=== PATIENT | female | born 1940 | race Caucasian/White ===

== ENCOUNTER → 2019-04-04 10:25 | Outpatient (REF) | payer MEDICARE, SELFPAY | LOC: ANHLAB 10:25 | PROVIDERS: Visit Provider Nurse Practitioner | DX: C44.329 Squamous cell carcinoma of skin of other parts of face (principal) | CPT/HCPCS: 88305; 88331 ==

== ENCOUNTER 2021-12-24 07:00 | Outpatient (NON) | payer MEDICARE, SELFPAY | END 2021-12-24 07:01 | disposition home or self-care (01) | PROVIDERS: PCP Physician Assistant Medical; Visit Provider Nurse Practitioner | DX: C44.229 Squamous cell carcinoma of skin of left ear and external auricular canal (principal) | CPT/HCPCS: 88305; 88342 ==

== ENCOUNTER 2022-01-13 14:20 | Outpatient (NON) | payer MEDICARE, SELFPAY | END 2022-01-13 14:21 | disposition home or self-care (01) | LOC: ANHLAB 14:21 | PROVIDERS: PCP Physician Assistant Medical; Visit Provider Nurse Practitioner | DX: C44.219 Basal cell carcinoma of skin of left ear and external auricular canal (principal) | CPT/HCPCS: 88305; 88331 ==

== ENCOUNTER 2023-02-03 07:00 | Outpatient (NON) | payer MEDICARE, SELFPAY | END 2023-02-04 11:39 | disposition home or self-care (01) | PROVIDERS: PCP Physician Assistant Medical; Visit Provider Nurse Practitioner | DX: D48.5 Neoplasm of uncertain behavior of skin (principal) | CPT/HCPCS: 88305 ==

== ENCOUNTER 2024-07-26 09:19 | Outpatient (CLI) | payer MEDICARE, SELFPAY ==
--- NOTE | ~2024-07-26 | MR_ITS ---
MRI of the left shoulder Technique: Axial proton-density fat-sat images, coronal proton density fat-sat and T2 fat-sat images, and sagittal T1-weighted and T2 fat-sat images were acquired. Clinical History: Pain Findings: There is advanced AC joint degenerative change, with probable prior subacromial decompressi on and/or resection of the acromion. There are complete, full-thickness tears of the supraspinatus and infraspinatus tendons, which are re tracted to the level of glenoid. Fluid-filled gap measures approximately 5.0 x 4.8 cm in extent. Ther e is moderate tendinosis of the subscapularis tendon, with suspected partial thickness tearing and mi ld diffuse thinning. There is complete rupture of the proximal long head biceps tendon, retracted to the bicipital groove. There is circumferential degenerative labral tearing. There is severe glenohumeral joint degenerative change with remodeling of the humeral head and glenoi d. There is subchondral reactive marrow edema in the glenoid. There is diffuse high-grade chondromala randee with high riding humeral head. Inferior glenohumeral ligament is intact. There is extremely large glenohumeral joint effusion, with fluid passing through the large rotator cuff defect into the subacromial/subdeltoid bursa. There is e xtensive debris or synovitis in the subacromial/subdeltoid bursa. There is severe fatty atrophy of th e supraspinatus and infraspinatus muscle bellies. There is also probable pronounced fatty atrophy of the subscapularis muscle belly. Impression: Masses, full-thickness complete rotator cuff tear involving the supraspinatus and infraspinatus tendo ns, as detailed above. Complete rupture of the proximal tendon of long head of the biceps. Extensive thinning of the subscapularis tendon without definite complete rupture. Marked fatty atrophy of the supraspinatus, infraspinatus, and subscapularis muscle bellies. High riding humeral head with severe glenohumeral joint degenerative change, as detailed above. Circumferential degenerative labral tearing. Large glenohumeral joint effusion with extensive debris or synovitis at the glenohumeral joint and in the subacromial/subdeltoid bursa. AC joint degenerative change of probable prior subacromial decompression or resection.. Reviewed, dictated and finalized at location M. Impression: Masses, full-thickness complete rotator cuff tear involving the supraspinatus a nd infraspinatus tendons, as detailed above. Complete rupture of the proximal tendon of long head of the biceps. Extensive thinning of the subscapularis tendon without definite complete ruptur e. Marked fatty atrophy of the supraspinatus, infraspinatus, and subscapularis mus will bellies. High riding humeral head with severe glenohumeral joint degenerative change, as detailed above. Circumferential degenerative labral tearing. Large glenohumeral joint effusion with extensive debris or synovitis at the gle nohumeral joint and in the subacromial/subdeltoid bursa. AC joint degenerative change of probable prior subacromial decompression or res ection..
--- OUTSIDE RECORDS SUMMARY | 2024-07-26 09:51 | XMS_ITS | Clinical Summary ---
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 Name Role Phone Temo Vasquez MD Primary Care Provider Allergies Active Allergy Reactions Criticality Noted Date Comments Etodolac Other (See comments) High 08/11/2018 GI Bleed per patient history form Iodine Strong (Lugols) Other (See comments) High 08/11/2018 GI Bleed Medications amLODIPine (NORVASC) 5 mg tablet TK 1 T PO QD 0 9 Active atorvastatin (LIPITOR) 10 mg tablet TK 1 T PO QD 0 9 Active benazepril-hydr ochlorothiazide (LOTENSIN HCT) 20-25 mg per tablet TK 1 T PO QD IN THE MORNING 0 9 Active fenofibrate micronized (LOFIBRA) 200 mg capsule TK 1 C PO QD 1 9 Active fluticasone propionate (FLONASE) 50 mcg/actuation nasal spray SHAKE LQ AND U 2 SPRAYS IEN QD 6 9 Active folic acid (FOLVITE) 1 mg tablet TK 1 T PO QD 0 9 Active metoprolol (LOPRESSOR) 50 mg tablet TK 1 T PO BID 1 9 Active albuterol HFA (PROVENTIL HFA,VENTOLIN HFA,PROAIR HFA) 90 mcg/actuation inhaler Inhale Active ascorbic acid (ascorbic acid) 500 mg tablet,chewable Take 1 tablet/chew tab (500 mg total) by mouth daily Active aspirin 81 mg enteric coated tablet Take 1 tablet (81 mg total) by mouth daily Active OneTouch Ultra Blue Test Strip strip TEST BLOOD SUGAR ONCE DAILY 1 Active cholecalciferol (VITAMIN D-3) 2000 unit tablet Take by mouth Active ferrous sulfate 325 mg (65 mg of elemental iron) tablet Take by mouth 2 (two) times a day 7 Active gabapentin (NEURONTIN) 300 mg capsule Take by mouth 2 (two) times a day 7 Active OneTouch Delica Plus Lancet 33 gauge misc USE TO TEST BLOOD SUGAR DAILY 1 Active omeprazole (PriLOSEC) 20 mg capsule Take by mouth Activ e polyethylene glycol (MIRALAX) 17 gram/dose powder Take 8.3 g by mouth daily Active fluticasone propionate (FLOVENT HFA) 110 mcg/actuation inhaler Inhale 2 puffs 2 (two) times a day Rinse mouth with water after use. Do not swallow. Active fluticasone propionate (FLONASE) 50 mcg/actuation nasal spray Administer 2 sprays into each nostril daily Active azelastine (ASTELIN) 137 mcg (0.1 %) nasal spray Administer 1 spray into each nostril 2 (two) times a day Use in each nostril as directed Active predniSONE (DELTASONE) 10 mg tablet Take 1 tablet (10 mg) by mouth daily Active traMADoL (ULTRAM) 50 mg tablet TAKE 1 TABLET BY MOUTH EVERY 6 HOURS NEEDED FOR CHRONIC BACK PAIN Active Active Problems Problem Noted Date Diagnosed Date Primary hypertension 10/23/2023 Assessment & Plan (10/23/2023 1:54 PM CDT): Impression: Chronic stable. Plan: Continue amlodipine, benazepril-hydrochlorothiazide, metoprolol Mixed hyperlipidemia 10/23/2023 Assessment & Plan (10/23/2023 1:53 PM CDT): Impression: Chronic stable. Plan: Continue fenofibrate and atorvastatin PVD (peripheral vascular disease) 10/23/2023 Assessment & Plan (10/23/2023 1:51 PM CDT): Impression: Patient denies any symptoms of claudication, ischemic rest pain or ulcerations to her lower extremity. He underwent a lower extremity arterial Doppler which revealed biphasic waveforms throughout bilateral lower extremities with ABIs to the right and left lower extremities to be 0.74 and 0.88. Plan: Given patient is asymptomatic, patient to follow-up as needed. Instructed patient if she develops symptoms of claudication, ischemic rest pain or nonhealing ulcerations to her lower extremity to call the office for further evaluation. Patient voices understanding. Bilateral lower extremity edema 09/10/2023 Assessment & Plan (10/23/2023 1:50 PM CDT): Impression: Patient continues to have bilateral lower extremity edema and has been compliant with utilizing compression therapy to include Tubigrip. Patient continues to complain of discoloration to the toes while her legs or in the dependent position and denies any discomfort. Plan: Reassured patient discoloration to the toes while in the dependent position is non life-threatening and is more likely venous congestion. -continue utilizing compression therapy and leg elevation for edema control. -prescription given to patient for Farroh wraps to assist with edema control if she chooses to increase compression strength. Assessment & Plan (09/10/2023 1:00 PM CDT): Bilateral lower extremity edema with reticular veins noted. No varicosities. No claudication symptoms both lower extremities are warm well perfused with palpable distal pulses to the right lower extremity very diminished to the left. Outside noninvasive studies were not complete. Plan: Continue compression therapy and follow-up in the next few weeks with a lower extremity arterial Doppler. Closed fracture of orbit 08/11/2018 Surgical History Surgery Date Site/Laterality Comments HYSTERECTOMY LIPOMA RESECTION BUNIONECTOMY CARPAL TUNNEL RELEASE CATARACT EXTRACTION LAMINECTOMY EYELID REPAIR W/ SKIN GRAFT SQUAMOUS CELL CARCINOMA EXCISION REPLACEMENT TOTAL KNEE Left TOTAL HIP ARTHROPLASTY Left BASAL CELL CARCINOMA EXCISION BACK SURGERY Medical History Medical History Date Comments Vaginal fibroids 1985 Syncope Incontinence in female Cataract Difficulty hearing Anemia History of GI bleed History of knee joint replacement Allergic rhinitis Asthma Anxiety Basal cell carcinoma Diabetes (HCC) Hypertension GERD (gastroesophageal reflux disease) Sinusitis Family History Medical History Relation Name Comments Cancer Brother Diabetes Brother Heart disease Brother Stroke Brother Cancer Father Hearing loss Father Diabetes Mother Heart disease Mother Stroke Mother Stroke Sister Relation Name Status Comments Brother Father Mother Sister Social History Tobacco Use Types Packs/Day Years Used Date Smoking Tobacco: Former Cigarettes Q uit: 1961 Smokeless Tobacco: Never Tobacco Cessation:Counseling Given: Not Answered Alcohol Use Standard Drinks/Week Comments Never 0 (1 standard drink = 0.6 oz pur e alcohol) AUDIT-C Answer Date Recorded Frequency of Alcohol Consumption Never 08/11/2018 Average Number of Drinks Not on file 019 Frequency of Binge Drinking Not on file 07/18 Personal Safety Answer Date Recorded Getting School Help Needed Not on file 02/04 Comments Unknown Sex and Gender Information Value Date Recorded Sex Assigned at Not on file 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 Gender Identity Not on file Sexual Orientation Not on file Obstetrics History Last Filed Vital Signs Vital Sign Reading Time Taken Comments Blood Pressure 155/67 10/21/2023 1:45 PM CDT Pulse 64 10/21/2023 1:45 PM CDT Temperature - - Respiratory Rate 17 06/19/2020 12:59 PM CDT Oxygen Saturation - - Inhaled Oxygen Concentration - - Weight 77.6 kg (171 lb) 10/21/2023 1:45 PM CDT Height 149.9 cm (4' 11) 10/21/2023 1:45 PM CDT Body Mass Index 34.54 10/21/2023 1:45 PM CDT Plan of Treatment Health Maintenance Due Date Last Done Comments Depression Screening 1940 Fall Risk Assessment 1940 Well Visit 65+ 07/22/2003 Zoster Vaccine (2 of 3) 02/25/2014 12/31/2013 Pneumococcal vaccine 65+ (2 of 2 - PPSV23) 03/20/2015 03/20/2014 Influenza Vaccine (Season Ended) 2024 11/15/2019, 11/27/2018, 11/10/2017, Additional history exists DTaP/Tdap/Td Vaccine (2 - Td or Tdap) 08/02/2028 08/02/2018 Hepatitis B Screening Completed 05/27/1993 , 12/11/1992, 11/06/1992 Osteoporosis Screening-Bone Density Scan Discontinued 12/24/2021 Insurance MEDICARE [facility] Care Teams Center Line Cutter Operator Relationship Specialty Start Date End Date Temo Vasquez MD [phone] [place] [address] PCP - General Internal Medicine 05/29/20
--- OUTSIDE RECORDS SUMMARY | 2024-07-26 09:51 | XMS_ITS | Referral Summary ---
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 Gender Identity Not on file Sexual Orientation Not on file Last Filed Vital Signs Vital Sign Reading [...] 10/21/2023 1:45 PM CDT Plan of Treatment Not on file Insurance [facility] Member Subscriber Plan / Payer ( fective 2023-Present) Name:Renuka Gamino V Relation to Subscriber:Self Name:Renuka Gamino V Payer ID:[id number] (NAIC) Group ID:Not on file Type:[facility] Address: [address] [place] [id number] Care Teams Tube Machine Operator Helper Relationship Specialty Start Date End Date Temo Vasquez MD [address] [place] [address] PCP - General Internal Medicine 05/29/20
== END 2024-07-26 09:20 | disposition home or self-care (01) ==
PROVIDERS: PCP Physician Assistant Medical; Visit Provider Physician Assistant Medical
DX: M75.122 Complete rotator cuff tear or rupture of left shoulder, not specified as traumatic (principal); S46.112A Strain of muscle, fascia and tendon of long head of biceps, left arm, initial encounter; S43.402A Unspecified sprain of left shoulder joint, initial encounter; X58.XXXA Exposure to other specified factors, initial encounter; M75.82 Other shoulder lesions, left shoulder; M62.512 Muscle wasting and atrophy, not elsewhere classified, left shoulder; M75.102 Unspecified rotator cuff tear or rupture of left shoulder, not specified as traumatic; M19.012 Primary osteoarthritis, left shoulder; M25.412 Effusion, left shoulder
CPT/HCPCS: 73221